=== PATIENT | male | born 1940 | race Caucasian/White ===

== ENCOUNTER 2024-09-22 22:06 | Inpatient (IN) | payer MEDICARE, BC, SELFPAY ==
[2024-09-22] VITALS (25 sets, daily range): BP systolic 0–139; BP diastolic 0–77; PULSE 60–106; RESP 18–27; O2SAT 88–100
--- NOTE | 2024-09-22 22:11 | PC.NURSE ---
Code blue called after EMS pre-arrival notification. CPR in progress by EMS upon entrance into the ED and taken over by ED staff - refer to code sheet.
--- NOTE | 2024-09-22 22:19 | XR_ITS ---
Examination: AP chest single view Technique: AP portable supine chest single view Exam date and time: September 22, 2024 11:10 PM Comparison November 02, 2023 Indications: Cardiopulmonary arrest postintubation Findings: Mild to moderate enlargement cardiac contour Tracheal tube tip 6.5 cm above ashlee Orogastric tube in stomach tip below the level of the film Right central line tip right atrium No pneumothorax No aspiration pneumonia Moderate vascular congestion Impression: Moderate vascular congestion No aspiration pneumonia
--- NOTE | 2024-09-22 22:25 | XR_ITS ---
Examination: CT brain head without contrast. 2-D sagittal coronal reconstructions Date and time of exam:September 23, 2024 0157 hrs. Indications: Status post cardiopulmonary arrest, hypoxic respiratory failure CTDI: vol (mGy):54.7 DLP: (mGycm):1139 Technique: Multiple CT axial sections of the brain have been obtained, 5 mm slice thickness. Contrast has not been administered. 2-D sagittal, coronal reconstructions have been obtained Low dose protocols were performed. One or more of the following dose reduction techniques were used; automated exposure control, adjustment of the mA and/or KV according to patient size, use of iterative reconstruction technique. Findings: Diffuse generalized cerebral and cerebellar edema Ventricles are not enlarged No hemorrhage noted Cranial vault appears intact Impression: Diffuse generalized cerebral edema MRI brain follow-up would best confirm ischemic/anoxic change
--- NOTE | 2024-09-22 22:25 | XR_ITS ---
Examination: CTA chest with intravenous contrast 2-D reconstructions 3-D reconstructions, vascular Date and time of exam: September 23, 2024 at 0210 hrs. Indications: Cardiopulmonary arrest, postintubation, elevated d-dimer CTDI: vol (mGy) 30.6 DLP: (mGycm) 561 Technique: Multiple axial sections of the thorax have been obtained. 3 mm slice thickness, from below the hemidiaphragms to above the apices of the lungs. Mediastinal and lung density settings have been obtained. 2-D sagittal and coronal reconstructions. 3-D angiographic renderings, 3-D volume renderings, 3D post processing, vascular maximum intensity projections obtained. Contrast administered is 80 cc Isovue-300 intravenous. Low dose protocols were performed. One or more of the following dose reduction techniques were used; automated exposure control, adjustment of the mA and/or KV according to patient size, use of iterative reconstruction technique. Findings: Endotracheal tube tip 2.8 cm above ashlee AP dimension ascending thoracic aorta 3.6 cm No pulmonary artery emboli Bibasilar pneumonia, consider aspiration pneumonia No pneumothorax Significant vascular congestion Orogastric tube tip in the stomach Acute fractures right second, third, fourth, fifth, sixth ribs with mild offset Acute fractures left second, third, fourth, fifth, sixth ribs with mild offset Manubrium thoracic vertebral bodies intact Impression: Negative for pulmonary artery emboli Bibasilar pneumonia consider aspiration pneumonia Multiple bilateral acute rib fractures
--- NOTE | 2024-09-22 22:25 | XR_ITS ---
Examination: CT abdomen with intravenous contrast CT pelvis with intravenous contrast 2-D coronal reconstructions 2-D sagittal reconstructions Date and time of exam:September 23, 2024 0210 hrs. Indications: Patient found down unconscious, status post cardiopulmonary arrest, hypoxic respiratory failure shortness of breath hypoxia today. CTDI: vol (mGy) 27.6 DLP: (mGycm) 1602 Technique: Multiple axial sections of the abdomen and pelvis have been obtained. 64 slice high-resolution scanner used. 3 mm axial sections have been obtained, post intravenous injection 80 cc Isovue-300 2-D sagittal, coronal reconstructions obtained. Low dose protocols were performed. One or more of the following dose reduction techniques were used; automated exposure control, adjustment of the mA and/or KV according to patient size, use of iterative reconstruction technique. Findings: Bibasilar pneumonia, consider aspiration pneumonia Mild intrahepatic biliary tract dilatation Absent gallbladder Spleen not enlarged No pancreatic or adrenal mass Atrophic right kidney No hydronephrosis Colonic wall shows diffuse thickening nonspecific colitis pattern Fluid distended small bowel loops are numerous Colonic diverticulosis Urinary bladder contracted around a [place] catheter Fat-containing left inguinal hernia Transverse prostate dimension 4.9 cm Impression: Bibasilar pneumonia, consider aspiration pneumonia Atrophic right kidney Diffuse nonspecific colitis pattern Multiple fluid distended small bowel loops, differential would include enteritis, early small bowel obstruction not excluded, clinical correlation advised
--- NOTE | 2024-09-22 22:27 | PD.EDCPR ---
ED CPR RME/HPI General Chief Complaint: Cardiac Arrest/CPR Stated Complaint: CARDIAC ARREST Arrival date/time: 09/22/24 22:06 RME / HPI RME / HPI narrative: This section includes all my notes and documentations, including HPI, PE, and ED course. Ottoniel Caraballo MD HPI: 84-year-old male here in cardiac arrest. went to his room to check up on him. He was in bed unresponsive and foaming in the mouth. Home health nurse performed chest compressions until EMS arrived. Rhythm showed asystole and PEA. No defibrillation. Patient was intubated and brought him here for further care. ROS: Unable to obtain from the patient due to current clinical condition. Physical Exam: General: Patient is intubated. Eyes: Pupils fixed and dilated. ENT: No signs of trauma. Heart: No cardiac activity. Lungs: No spontaneous respiration. Good air movement bilaterally with BVM ventilation. Abdomen: Soft. Legs: No clubbing, cyanosis, edema. Skin: Warm and dry. Neuro: GCS 3. I reviewed EMS notes. See procedure note for right subclavian central line placement. I reviewed all diagnostic test results. My interpretation of the EKG is sinus rhythm with nonspecific ST-T changes. My interpretation of the chest x-ray is no acute findings. My review of the CT reports is no acute findings. Blood tests and urine tests remarkable for WBC 20.7, ESR 42, D-dimer > 3820, K 5.7, Cr 2.2, Glu 331, LA 12.2, LFT elevation, Ammonia 215, TSH 51.21. UDS positive for opiates and benzodiazepines. ABG showed pH 7.14, pCO2 53, pHCO3 18. ACLS protocol followed, with cycles of 2-minute chest compressions. Epinephrine given every 3 to 5 minutes when indicated. Patient defibrillated X 2. Treatment included amiodarone, Levophed drip, dopamine drip, epinephrine drip, Rocephin, bicarb boluses and drip, and vasopressin. I discussed the case with our ICU. About the presentation and exam and diagnostics and treatments here. And need of further care in the hospital. Will accept the patient. Ottoniel Caraballo MD Related Data Home Medications ?Medication ?Instructions ?Recorded ?Confirmed alprazolam 1 mg tablet (Xanax) 1 mg PO HS insomnia #0 tabs 05/19/17 11/28/23 docusate sodium 100 mg capsule 100 mg PO QDAY #0 caps 05/19/17 11/28/23 (Colace) esomeprazole magnesium 40 mg 40 mg PO QDAY ##0 05/19/17 11/28/23 capsule,delayed release (Nexium) gabapentin 300 mg capsule 200 mg PO BID #0 caps 05/19/17 11/28/23 lidocaine 5 % topical patch 1 patch TOP PRN PRN Pain #0 patches 05/19/17 11/02/23 (Lidoderm) tamsulosin 0.4 mg capsule (Flomax) 0.4 mg PO QDAY ##0 05/19/17 11/28/23 fluticasone propionate 50 1 spray intranasal PRN PRN Allergy 08/28/18 11/28/23 mcg/actuation nasal Symptoms spray,suspension hydrocodone 10 mg-acetaminophen 1 tab PO TID 08/28/18 11/28/23 325 mg tablet (Rombauer) clotrimazole 1 % topical cream applic topical PRN PRN rash 11/02/23 empagliflozin 10 mg tablet 10 mg PO DAILY 11/02/23 11/28/23 (Jardiance) fenofibrate micronized 200 mg 200 mg PO QDAY 11/02/23 11/02/23 capsule metoprolol succinate 50 mg 50 mg PO QDAY 11/02/23 11/28/23 tablet,extended release 24 hr mupirocin 2 % topical ointment topical PRN PRN under arm rash 11/02/23 potassium chloride 10 mEq 10 meq PO QDAY 11/02/23 11/02/23 capsule,extended release rosuvastatin 40 mg tablet 40 mg PO HS 11/02/23 11/28/23 Previous Rx's ?Medication ?Instructions ?Recorded hydrocodone 5 mg-acetaminophen 325 1 tab PO Q8H PRN pain #9 tabs 12/02/23 mg tablet Allergies Allergy/AdvReac Type Severity Reaction Status Date / Time grass pollen-orchard grass, Allergy Severe FLU LIKE Verified 09/20/19 09:49 standard SYPTOMS methocarbamol [From Robaxin] Allergy Mild Dizziness Verified 11/28/19 12:58 Course Quality Measures none Orders Category Date Time Status Bedside COVID-19 Antigen Test NOW Care 09/22/24 22:20 Active Bedside Influenza A&B Antigen Test NOW Care 09/22/24 22:20 Completed COVID-19 Screening Questionnaire NOW Care 09/23/24 03:[address] Screening NOW Care 09/22/24 22:25 Active Decision to Admit X1 Care 09/23/24 03:44 Completed EKG (ED ONLY) *Do not use* NOW Care 09/22/24 22:20 Completed [place] to Leg Bag Routine Care 09/22/24 22:21 Ordered Insert NG / OG tube NOW Care 09/22/24 22:21 Active Saline [Insert IV] NOW Care 09/22/24 22:[address] abdomen pelvis w con Stat Exams 09/22/24 22:[address] angio chest Stat Exams 09/22/24 22:[address] head/brain wo con Stat Exams 09/22/24 22:25 Taken EKG (ED Only) Stat Exams 09/22/24 22:20 Ordered XR chest 1V post procedure Stat Exams 09/22/24 22:19 Completed ABG [Arterial Blood Gas] Stat Lab 09/22/24 23:07 Completed ABG [Arterial Blood Gas] Stat Lab 09/23/24 04:01 Completed Alcohol, Blood Medical Stat Lab 09/22/24 22:20 Completed Ammonia Stat Lab 09/22/24 22:20 Completed Amylase Stat Lab 09/22/24 22:20 Completed BNP [B-Type Natriuretic Peptide] Stat Lab 09/22/24 22:20 Completed Blood Culture (Lab) Stat Lab 09/22/24 22:25 Received CBC Stat Lab 09/22/24 22:20 Completed CK [Creatine Kinase] Stat Lab 09/22/24 22:20 Completed CMP [Comprehensive Metabolic Panel] Stat Lab 09/22/24 22:20 Completed CRP [C-Reactive Protein] Stat Lab 09/22/24 22:20 Completed D-Dimer Stat Lab 09/22/24 22:20 Completed Drug Screen,Urine Stat Lab 09/22/24 22:48 Completed ESR [Sed Rate (ESR)] Stat Lab 09/22/24 22:20 Completed Lactate (Lactic Acid) Stat Lab 09/22/24 22:20 Completed Lactic Acid, 3 HR Stat Lab 09/23/24 01:30 Completed Lipase Stat Lab 09/22/24 22:20 Completed Magnesium Stat Lab 09/22/24 22:20 Completed PT [Prothrombin Time with INR] Stat Lab 09/22/24 22:20 Completed PTT [Partial Thromboplastin Time] Stat Lab 09/22/24 22:20 Completed Path Review Blood Smear Stat Lab 09/22/24 22:20 Completed Potassium Stat Lab 09/22/24 23:30 Completed Procalcitonin Stat Lab 09/22/24 22:20 Completed RSV [Respiratory Syncytial Virus Ag] Stat Lab 09/22/24 22:26 Ordered TSH [Thyroid Stimulating Hormone] Stat Lab 09/22/24 22:20 Completed Troponin I Stat Lab 09/22/24 22:20 Completed UA [Urinalysis] Stat Lab 09/22/24 22:48 Completed Amiodarone 150 mg Ivpb [Nexterone Ivpb] Med 09/22/24 22:43 Discontinued 150 mg in 100 ml IV 600 mls/hr DOPamine/D5w 400 MG IVPB [Intropin in D5w Ivpb] Med 09/22/24 22:18 Discontinued 400 mg in 250 ml IV .STK-MED DOPamine/D5w 400 MG IVPB [Intropin in D5w Ivpb] Med 09/22/24 22:30 Active 400 mg in 250 ml IV 5 mcg/kg/min Dextrose 5%-Water [D5w] 500 ml Med 09/22/24 22:45 Active Sodium Bicarb 8.4% 50ml Vial* 88.23 meq IV 100 mls/hr Dextrose 5%-Water [D5w] 500 ml Med 09/23/24 10:30 Pending Sodium Bicarb 8.4% 50ml Vial* 88.23 meq IV 100 mls/hr EPINEPHrine Inj [Adrenalin Inj] Med 09/22/24 22:18 Discontinued 30 mg IV .STK-MED ONE Insulin Regular Med 09/23/24 04:01 Discontinued 5 unit IV X1 ONE Norepinephrine/D5W 8mg/250ml [Levophed in D5W 8mg/250ml Med 09/22/24 22:18 Discontinued ] 8 mg in 250 ml IV .STK-MED Norepinephrine/D5W 8mg/250ml [Levophed in D5W 8mg/250ml Med 09/22/24 22:18 Discontinued ] 8 mg in 250 ml IV 0.05 mcg/kg/min Norepinephrine/NS 16mg/250ml [Levophed in NS 16mg/250ml Med 09/22/24 23:25 Discontinued ] 16 mg in 250 ml IV .STK-MED Norepinephrine/NS 16mg/250ml [Levophed in NS 16mg/250ml Med 09/22/24 23:28 Active ] 16 mg in 250 ml IV 0.05 mcg/kg/min Propofol 1,000 mg Ivpb [Diprivan Ivpb] Med 09/22/24 22:19 Discontinued 1,000 mg in 100 ml IV .STK-MED Propofol 1,000 mg Ivpb [Diprivan Ivpb] Med 09/22/24 22:22 Active 1,000 mg in 100 ml IV 5 mcg/kg/min Sodium Bicarb 8.4% SYR Med 09/22/24 22:49 Discontinued 150 ml IV .STK-MED ONE Sodium Chloride 0.9% 1000 ml [Ns] 1,000 ml Med 09/22/24 22:23 Discontinued IV 999 mls/hr Sodium Chloride 0.9% 1000 ml [Ns] 1,000 ml Med 09/22/24 22:23 Discontinued IV 999 mls/hr Sodium Chloride 0.9% 1000 ml [Ns] 1,000 ml Med 09/22/24 22:24 Discontinued IV 999 mls/hr Sodium Chloride 0.9% 1000 ml [Ns] 1,000 ml Med 09/23/24 03:39 Discontinued IV 999 mls/hr Sodium Chloride 0.9% 250 ml [Ns] 234 ml Med 09/22/24 22:17 Active EPINEPHrine Inj [Adrenalin Inj] 16 mg IV 0.05 mcg/kg/min Sodium Chloride 0.9% [Ns] 96 ml Med 09/23/24 03:50 Active Phenylephrine HCl [Phenylephrine] 40 mg IV 0.5 mcg/kg/min Vasopressin in Ns Ivpb [Vasostrict/Ns Ivpb] Med 09/23/24 01:14 Discontinued 20 unit in 100 ml IV .STK-MED Vasopressin in Ns Ivpb [Vasostrict/Ns Ivpb] Med 09/23/24 01:17 Active 20 unit in 100 ml IV 0.03 unit/min cefTRIAXone/D5w 1gm IV premix [Rocephin/D5w 1gm IV Med 09/22/24 22:25 Discontinued premix] 50 ml IV X1 Mechanical [Volume Ventilator] Stat RT 09/22/24 Active Vital Signs Vital signs: Vital Signs Pulse Rate 84 09/22/24 22:20 Respiratory Rate 24 H 09/22/24 22:20 Blood Pressure 96/49 L 09/22/24 22:20 Pulse Oximetry (%) 95 09/22/24 22:20 Oxygen Delivery Method Ambu-Bag 09/22/24 22:20 Procedures -ED Central Line Placement Right SC: Time Out Performed: Yes Patient Placed on Monitor/Pulse Ox: Yes Hand Hygiene: scrub, soap & water and alcohol-based hand rub Max Sterile Barrier Techniques used: cap, mask, sterile gown, sterile gloves and sterile full body drape Central Line Prep: Chlorhexidine scrub and sterile drapes applied Ultrasound Used for Placement: No Central Line Lumen Inserted: triple Post Procedure: sutured in place, good blood return, all ports aspirated, flushed, capped and sterile dressing applied Post Procedure X-Ray: tip of catheter in good position and no pneumothorax seen Patient Tolerated Procedure: no complications Complications: none Cardiac Arrest / CPR Patient data External records reviewed:: [facility] previous records Clinical information provided by:: EMS and family Social determinants that could affect healthcare access:: none Patient has the following chronic illnesses:: See chart How is presenting disease/condition affected by chronic disease/condition?: exacerbated by Evaluation data The following diagnostics were reviewed and interpreted by me:: lab results, radiology exam(s) and EKG tracing(s) (My interpretation of the EKG is: Atrial fibrillation (71 bpm) with marked ST depressions. Ottoniel Caraballo MD) Lab and/or radiology exams considered but not ordered:: None Interpretation Summary: Cardiac arrest Medications / Prescriptions Medications or Prescriptions considered but not ordered:: None Medication administrations:: Medication Administration History Acetaminophen (Acetaminophen 325 Mg Tablet) 650 mg PO Q4HR PRN PRN Reason: PAIN SCALE 1-3 (mild Stop: 10/23/24 04:02 Acetaminophen (Acetaminophen Supp 650 Mg Supp) 650 mg AR Q4HR PRN PRN Reason: PAIN SCALE 1-3 (mild Stop: 10/23/24 04:02 Heparin Sodium (Porcine) (Heparin Sod Inj 5000 Unit/Ml Vial) 5,000 unit SC Q8HR MELISSA Stop: 10/07/24 05:59 Epinephrine HCl 16 mg/ Sodium (Chloride) 250 mls @ 5.297 mls/hr IV .Q24H PRN; Protocol PRN Reason: Per Protocol Stop: 10/22/24 22:16 Last Admin: 09/23/24 04:04 Dose: 2 mcg/kg/min, 211.875 mls/hr Documented By: Titration: 09/23/24 01:13 Dose: Infused Documented By: Admin: 09/23/24 00:02 Dose: 2 mcg/kg/min, 211.875 mls/hr Documented By: Titration: 09/22/24 23:48 Dose: Infused Documented By: Titration: 09/22/24 22:42 Dose: 2 mcg/kg/min, 211.875 mls/hr Documented By: Admin: 09/22/24 22:31 Dose: 1 mcg/kg/min, 105.938 mls/hr Documented By: KG Dopamine HCl/Dextrose (Intropin In D5w Ivpb) 400 mg in 250 mls @ 21.188 mls/hr IV .[id number] MELISSA; Protocol Stop: 10/22/24 22:29 Last Titration: 09/23/24 03:55 Dose: Infused Documented By: Admin: 09/23/24 00:01 Dose: 50 mcg/kg/min, 211.875 mls/hr Documented By: Titration: 09/22/24 23:45 Dose: Infused Documented By: Admin: 09/22/24 22:34 Dose: 50 mcg/kg/min, 211.875 mls/hr Documented By: KG Propofol (Diprivan Ivpb) 1,000 mg in 100 mls @ 3.39 mls/hr IV .Q24H PRN; Protocol PRN Reason: PER PROTOCOL Stop: 10/22/24 22:21 Sodium Bicarbonate 88.23 meq/ (Dextrose) 588.23 mls @ 100 mls/hr IV .Q5H53M MELISSA Stop: 10/23/24 10:29 Sodium Bicarbonate 88.23 meq/ (Dextrose) 588.23 mls @ 100 mls/hr IV .Q5H53M MELISSA Stop: 09/23/24 10:30 Last Admin: 09/23/24 00:50 Dose: 100 mls/hr Documented By: KG Norepinephrine Bitartrate (Levophed In Ns 16mg/250ml) 16 mg in 250 mls @ 5.297 mls/hr IV .Q24H PRN; Protocol PRN Reason: PER PROTOCOL Stop: 10/22/24 23:27 Last Admin: 09/23/24 05:16 Dose: 3 mcg/kg/min, 317.813 mls/hr Documented By: Titration: 09/23/24 04:13 Dose: Infused Documented By: Admin: 09/23/24 03:25 Dose: 3 mcg/kg/min, 317.813 mls/hr Documented By: Titration: 09/23/24 00:21 Dose: Infused Documented By: Admin: 09/22/24 23:33 Dose: 3 mcg/kg/min, 317.813 mls/hr Documented By: KG Vasopressin/Sodium Chloride (Vasostrict/Ns Ivpb) 20 unit in 100 mls @ 9 mls/hr IV .Q11H7M PRN; Protocol PRN Reason: PER PROTOCOL Stop: 10/23/24 01:16 Last Admin: 09/23/24 01:22 Dose: 0.03 unit/min, 9 mls/hr Documented By: SHAILA Phenylephrine HCl 40 mg/ (Sodium Chloride) 100 mls @ 8.475 mls/hr IV .[id number] PRN; Protocol PRN Reason: Per Sepsis Protocol Stop: 10/23/24 03:49 Last Titration: 09/23/24 05:04 Dose: 0.7 mcg/kg/min, 11.865 mls/hr Documented By: Admin: 09/23/24 03:55 Dose: 0.5 mcg/kg/min, 8.475 mls/hr Documented By: SUE Phenylephrine HCl 40 mg/ (Sodium Chloride) 100 mls @ 8.475 mls/hr IV .[id number] PRN; Protocol PRN Reason: Per Sepsis Protocol Stop: 10/23/24 04:02 Vancomycin HCl 1,000 mg/ (Sodium Chloride) 250 mls @ 150 mls/hr IV X1 ONE Stop: 09/23/24 05:45 Piperacillin/Tazobactam/Dextrose (Zosyn) 3.375 gm in 50 mls @ 100 mls/hr IV Q6HR MELISSA Stop: 09/30/24 04:05 Pantoprazole Sodium (Pantoprazole Inj 40 Mg Vial) 40 mg IVP BID MELISSA Stop: 10/23/24 08:59 Discontinued Medications Epinephrine HCl (Epinephrine Inj 1 Mg/Ml Vial 30ml) Confirm Administered Dose 30 mg IV .STK-MED ONE Stop: 09/22/24 22:19 Last Admin: 09/22/24 22:30 Dose: Not Given Documented By: KG Non-Admin Reason: Override Medication Hydrocortisone Sodium Succinate (Hydrocortisone Sod Succ Inj 100 Mg Vial) 100 mg IV X1 ONE Stop: 09/23/24 04:08 Norepinephrine/Dextrose (Levophed In D5w 8mg/250ml) 8 mg in 250 mls @ 10.594 mls/hr IV .[id number] PRN; Protocol PRN Reason: PER PROTOCOL Stop: 10/22/24 22:17 Last Admin: 09/22/24 23:06 Dose: 3 mcg/kg/min, 635.625 mls/hr Documented By: Titration: 09/22/24 23:06 Dose: Infused Documented By: Titration: 09/22/24 22:45 Dose: 3 mcg/kg/min, 635.625 mls/hr Documented By: Admin: 09/22/24 22:35 Dose: 1 mcg/kg/min, 211.875 mls/hr Documented By: KG Sodium Chloride (Ns) 1,000 mls @ 999 mls/hr IV .Q1H1M ONE Stop: 09/22/24 23:23 Last Admin: 09/22/24 22:30 Dose: 999 mls/hr Documented By: KG Sodium Chloride (Ns) 1,000 mls @ 999 mls/hr IV .Q1H1M ONE Stop: 09/22/24 23:23 Last Admin: 09/22/24 23:00 Dose: 999 mls/hr Documented By: KG Sodium Chloride (Ns) 1,000 mls @ 999 mls/hr IV .Q1H1M ONE Stop: 09/22/24 23:24 Last Admin: 09/23/24 03:14 Dose: Not Given Documented By: GB Non-Admin Reason: Code Blue Dopamine HCl/Dextrose (Intropin In D5w Ivpb) Confirm Administered Dose 400 mg in 250 mls @ ud IV .STK-MED ONE Stop: 09/22/24 22:19 Last Admin: 09/22/24 22:30 Dose: Not Given Documented By: KG Non-Admin Reason: Override Medication Norepinephrine/Dextrose (Levophed In D5w 8mg/250ml) Confirm Administered Dose 8 mg in 250 mls @ ud IV .STK-MED ONE Stop: 09/22/24 22:19 Last Admin: 09/22/24 22:30 Dose: Not Given Documented By: KG Non-Admin Reason: Override Medication Propofol (Diprivan Ivpb) Confirm Administered Dose 1,000 mg in 100 mls @ ud IV .STK-MED ONE Stop: 09/22/24 22:20 Last Admin: 09/23/24 01:16 Dose: Not Given Documented By: AC Non-Admin Reason: Override Medication Ceftriaxone Sodium/Dextrose (Rocephin/D5w 1gm Iv Premix) 50 mls @ 100 mls/hr IV X1 ONE Stop: 09/22/24 22:54 Last Admin: 09/23/24 00:30 Dose: 100 mls/hr Documented By: KG Amiodarone HCl/Dextrose (Nexterone Ivpb) 150 mg in 100 mls @ 600 mls/hr IV .Q10M ONE Stop: 09/22/24 22:52 Last Admin: 09/23/24 03:14 Dose: Not Given Documented By: GB Non-Admin Reason: Code Blue Norepinephrine Bitartrate (Levophed In Ns 16mg/250ml) Confirm Administered Dose 16 mg in 250 mls @ ud IV .STK-MED ONE Stop: 09/22/24 23:26 Last Admin: 09/23/24 01:18 Dose: Not Given Documented By: AC Non-Admin Reason: Override Medication Vasopressin/Sodium Chloride (Vasostrict/Ns Ivpb) Confirm Administered Dose 20 unit in 100 mls @ ud IV .STK-MED ONE Stop: 09/23/24 01:15 Last Admin: 09/23/24 03:14 Dose: Not Given Documented By: GB Non-Admin Reason: stock med Sodium Chloride (Ns) 1,000 mls @ 999 mls/hr IV .Q1H1M ONE Stop: 09/23/24 04:39 Last Admin: 09/23/24 03:47 Dose: 999 mls/hr Documented By: GB Piperacillin/Tazobactam/Dextrose (Zosyn) 3.375 gm in 50 mls @ 100 mls/hr IV X1 ONE Stop: 09/23/24 04:59 Insulin Human Regular (Insulin Hum Regular 1 Unit/0.01 Ml (Per Unit)) 5 unit IV X1 ONE Stop: 09/23/24 04:02 Sodium Bicarbonate (Sodium Bicarb Inj 8.4% Syr 50 Ml Syringe) Confirm Administered Dose 150 ml IV .STK-MED ONE Stop: 09/22/24 22:50 Last Admin: 09/23/24 01:18 Dose: Not Given Documented By: AC Non-Admin Reason: Override Medication Sodium Bicarbonate (Sodium Bicarb Inj 8.4% Syr 50 Ml Syringe) 50 ml IV X1 ONE Stop: 09/23/24 04:18 Last Admin: 09/23/24 04:23 Dose: 50 ml Documented By: KG Sodium Bicarbonate (Sodium Bicarb Inj 8.4% Syr 50 Ml Syringe) 50 ml IV X1 ONE Stop: 09/23/24 04:18 Last Admin: 09/23/24 04:23 Dose: 50 ml Documented By: KG Sodium Bicarbonate (Sodium Bicarb Inj 8.4% 1 Meq/Ml Vial 50 Ml) 100 meq IV X1 ONE Stop: 09/23/24 04:26 See chart Consultations Consultation(s) initiated? (list below): No Diagnosis Most likely diagnosis given after review of the tests above:: Cardiac arrest Admission Indicated Admission indicated?: indicated Explain why admission is indicated or not indicated:: Cardiac arrest Admission Request Was there a request for admission?: Yes Admission Attestation Admission request attestation: Discussed case with our ICU service regarding admission. Discussed patients ED course, exam findings, labs, and radiology results. The Hospitalist [agrees,declines] to accept the patient for admission. Disposition Plan Disposition Plan: Admit Critical Care Time Critical Care Time Critical Care Time: Yes Total Critical Care Time (min.): 68 Attestation: Due to a high probability of clinically significant, life threatening deterioration, the patient required my highest level of preparedness to intervene emergently and I personally spent this critical care time directly and personally managing the patient.? This critical care time included obtaining history; examining the patient; ordering and review of studies; arranging urgent treatment with development of management plan; evaluation of patient's response to treatment; frequent reassessment; and discussions with family and other providers. It was exclusive of separately billable procedures and treating other patients and teaching time.? Ottoniel Caraballo MD Discharge Plan Plan Patient Disposition: Admit Acute Care w/in Hospital Problem List Clinical Impression: Cardiac arrest
[2024-09-22] MEDS: SODIUM CHLORIDE 0.9% 1000 ML 1,000 ML 999 ML IV ×2 (22:30→23:00)
[2024-09-22] MEDS: EPINEPHrine Inj 16 MG in SODIUM CHLORIDE 0.9% 250 ML 234 ML 105.938 MG IV (22:31)
[2024-09-22] MEDS: DOPamine/D5w 400 MG IVPB 400 MG/250 ML BAG 211.875 MG IV (22:34)
[2024-09-22] MEDS: Norepinephrine/D5W 8mg/250ml 8 MG/250 ML BAG 211.875 MG IV (22:35)
[2024-09-22 22:36] LABS: Basophils # (Auto) 0.1 Thou/mm3 (0.0-0.2); Basophils % (Auto) 1 % (0-2.5); Eosinophils # (Auto) 0.3 Thou/mm3 (0.0-0.5); Eosinophils % (Auto) 1 % (0-10); Hematocrit 39.8 % (41.0-53.0); Hemoglobin 12.1 g/dL (13.5-16.0); Immature Granulocytes % (Auto) 7 % (0-0); Immature Granulocytes Auto 1.35 Thou/mm3 (0.00-0.00); Lymphocytes # (Auto) 10.6 Thou/mm3 (1.0-4.8); Lymphocytes % (Auto) 51 % (10-50); Mean Corpuscular HGB Conc 30.4 g/dl (31.0-37.0); Mean Corpuscular Volume 102 fL (80-100); Monocytes # (Auto) 0.8 Thou/mm3 (0.0-0.8); Monocytes % (Auto) 4 % (0-12); Neutrophils # (Auto) 7.6 Thou/mm3 (1.8-7.7); Neutrophils % (Auto) 37 % (37-80); Nucleated Red Blood Cell # 0.02 Thou/mm3 (0.00-0.00); Nucleated Red Blood Cell % 0 /100 WBC (0); Platelet Count 121 Thou/mm3 (140-440); RDW Standard Deviation 52.4 fL (35.1-43.9); White Blood Count 20.7 Thou/mm3 (3.8-10.6)
[2024-09-22 22:43] LABS: Lactate (Lactic Acid) 11.9 mMol/L (0.4-2.0)
[2024-09-22 22:45] LABS: Sed Rate (ESR) 42 mm/hr (0-20)
[2024-09-22 23:03] LABS: D-Dimer > 3820 ng/mL (<600)
[2024-09-22 23:05] LABS: B-Type Natriuretic Peptide 40 pg/mL (0-100); INR 1.2 (0.9-1.3); Partial Thromboplastin Time 38.7 Seconds (22.0-36.0)
[2024-09-22] MEDS: Norepinephrine/D5W 8mg/250ml 8 MG/250 ML BAG 635.625 MG IV (23:06)
[2024-09-22 23:10] LABS: Collection Type, Urine Clean Catch; RBC,Urine 0 /hpf (0-3); WBC,Urine 0 /hpf (0-5)
[2024-09-22 23:11] LABS: Ammonia 215 uMol/L (11-32)
[2024-09-22 23:13] LABS: Allen Test Performed/OK; Base Excess -11 (-3-3); HCO3 18 mEq/L (20-26); Inspired Oxygen, FIO2 21 %; O2 Saturation 99 % (91-98); PCO2 53 mmHg (32.0-48.0); PO2 131 mmHg (83-108); Puncture Site Left Radial
[2024-09-22 23:14] LABS: pH, Arterial 7.14 (7.35-7.45)
[2024-09-22 23:19] LABS: Alanine Aminotransferase 155 U/L (10-49); Albumin, Serum 3.4 gm/dL (3.4-4.8); Albumin/Globulin Ratio 1.5 (1.2-2.2); Alcohol, Blood Medical < 3.0 mg/dL (0-10.0); Alkaline Phosphatase 92 U/L (46-116); Anion Gap 15 (7-16); Aspartate Amino Transferase 122 U/L (0-34); BUN/Creatinine Ratio 21 Ratio (12-20); Bilirubin,Total 0.3 mg/dL (0.3-1.2); Blood Urea Nitrogen 47 mg/dL (9-23); Calcium (Corrected) 10.5 mg/dL (8.5-10.1); Carbon Dioxide 21.5 mMol/L (20.0-31.0); Chloride 104 mMol/L (98-107); Creatine Kinase 69 U/L (34-171); Creatinine (Component) 2.2 mg/dL (0.6-1.3); Globulin 2.2 gm/dL (2.3-3.5); Glucose 331 mg/dL (74-106); Lipase 55 U/L (12-53); Magnesium 2.7 mg/dL (1.6-2.6); Osmolality,Calculated 304 (275-295); Procalcitonin 0.11 ng/ml (0.0-0.49); Sodium 140 mMol/L (136-145); Thyroid Stimulating Hormone 51.21 uIU/mL (0.55-4.78); Total Protein 5.6 gm/dL (5.7-8.2); Troponin I < 0.020 ng/mL (0.0-0.045); eGFR 29 See Note
[2024-09-22 23:25] LABS: Potassium 6.4 mMol/L (3.4-5.1)
[2024-09-22 23:31] LABS: Amylase 150 U/L (30-118); C-Reactive Protein < 0.4 mg/dL (0.0-0.9)
[2024-09-22 23:32] LABS: Bilirubin,Urine Negative (Negative); Blood,Urine Negative (Negative); Clarity,Urine Clear (Clear/Hazy); Color,Urine Lt-Yellow (Lt Yel-Yel); Glucose, Urine Negative (Negative); Hyaline Casts,Urine < 1 /hpf (0-1); Ketones,Urine Negative (Negative); Leukocyte Esterase,Urine Negative (Negative); Nitrite,Urine Negative (Negative); PH,Urine 6.5 (5.0-7.0); Protein,Urine 1+ (Neg - Trace); Specific Gravity,Urine 1.019 (1.001-1.035); Squamous Epithelial Cell,Urine < 1 /hpf (0-5); Urobilinogen,Urine Negative mg/dL (0.0-1.0)
[2024-09-22] MEDS: Norepinephrine/NS 16mg/250ml 16 MG/250 ML BAG 317.813 MG IV (23:33)
[2024-09-22 23:41] LABS: Amphetamine/Methamp Scrn,U Negative (Negative); Barbiturate Screen,Urine Negative (Negative); Benzodiazepines Screen,Urine Positive (Negative); Benzoylecgonine Screen, Ur Negative (Negative); Fentanyl Screen,Urine Negative (Negative); Opiate Screen,Urine Positive (Negative); THC Screen,Urine Negative (Negative)
--- NOTE | 2024-09-22 23:50 | PC.NURSE ---
Called and spoke with pt's daughter Bobbi who is on her way to the hospital.
[2024-09-22 23:58] LABS: Potassium 5.7 mMol/L (3.4-5.1)
[2024-09-23] VITALS (69 sets, daily range): BP systolic 67–120; BP diastolic 34–62; PULSE 90–103; RESP 20–24; TEMP 32.8–36.2; O2SAT 64–100; BMI 39.9
[2024-09-23] MEDS: DOPamine/D5w 400 MG IVPB 400 MG/250 ML BAG 211.875 MG IV (00:01)
[2024-09-23] MEDS: EPINEPHrine Inj 16 MG in SODIUM CHLORIDE 0.9% 250 ML 234 ML 211.875 MG IV ×4 (00:02→06:43)
[2024-09-23] MEDS: cefTRIAXone/D5w 1gm IV premix 50 ML IV (00:30)
--- NOTE | 2024-09-23 00:41 | PC.NURSE ---
Family at the bedside
[2024-09-23] MEDS: Sodium Bicarb 8.4% 50ml Vial* 88.23 MEQ in DEXTROSE 5%-WATER 500 ML 100 MEQ IV ×2 (00:50→05:59)
--- NOTE | 2024-09-23 01:05 | PC.NURSE ---
Dr. Caraballo at the bedside speaking to family.
[2024-09-23] MEDS: VASOPRESSIN IN NS IVPB 20 UNIT/100 ML BAG 9 UNIT IV ×2 (01:22→08:21)
[2024-09-23 01:30] LABS: Reflex Lactate? Y
[2024-09-23 02:08] LABS: Path Review Blood Smear Sent to Pathologist
--- NOTE | 2024-09-23 02:44 | PRELIM_ITS ---
CT angiogram of the chest with intravenous contrast (axial sections with sagittal and coronal reforma ts) September 23, 2024 0210 hours Clinical History: Shortness of breath and hypoxia.Technique:Helical axial sections with sagittal and coronal reformats of the chest were obtained with intravenous contra st. Iterative reconstruction technique was employed to reduce patient radiation exposure. 3D/MIP vinod nstructed images were also provided. Comparison: None.Findings:The evaluation of some of the subsegme ntal pulmonary artery divisions is limited due to respiratory motion and streak artifact. No pulmonar y thromboembolism in the remainder of the pulmonary artery divisions. The mediastinum demonstrates no evidence of mass or lymphadenopathy. The thoracic aorta demonstrates atheromatous calcification with out evidence of aneurysm. There is no pericardial effusion. Bibasilar atelectasis/consolidation is se en (right greater than left). There is a calcified granuloma in the right lower lobe. No evidence of pleural effusion or pneumothorax.Degenerative changes are identified in the spine.An endotracheal tub e is seen with its tip 2.5 cm above the ashlee. There is a nasogastric catheter with its tip in the s tomach. There is a right central venous catheter with its tip in the superior vena cava. Neurostimula tor leads are noted in the thoracic spinal canal.Impression:No CT evidence of pulmonary thromboemboli sm (limited evaluation of some of the subsegmental pulmonary artery divisions due to respiratory naima on and streak artifact). Recommend additional evaluation, if clinically indicated.Bibasilar atelectas is/consolidation; the possibility of aspiration cannot be excluded. Recommend clinical correlation.Ot her findings as described above. Report Electronically Signed By: Milad Persaud 09/23/2024 2:43:46 AM [EST]
--- NOTE | 2024-09-23 02:54 | PRELIM_ITS ---
CT scan of the abdomen and pelvis with intravenous contrast (axial sections with sagittal and coronal reformats) September 23, 2024 0210 hoursClinical History: Abdominal pain.Comparison: None.Findings:Th e gallbladder is surgically absent. The right kidney is atrophic. Nonspecific perinephric fat strandi ng is noted bilaterally. The liver, pancreas, spleen, and adrenals are unremarkable.The appendix is w ithin normal limits. There is wall thickening of the ascending and transverse colon. There are multip le colonic diverticula without evidence of diverticulitis. There are diffusely dilated small bowel lo ops in the abdomen. A [place] catheter is seen in the empty urinary bladder. There is a small fat conta ining left inguinal hernia. There is no free fluid or free air. The abdominal aorta demonstrates athe romatous calcification without evidence of aneurysm.Degenerative changes are identified in the spine. There are postoperative changes with transpedicular screws in the lumbar spine. There is a neurostim ulator device in the left posterior abdominal wall with its leads in the spinal canal.Impression:[place] marika wall thickening with diffusely dilated fluid filled small bowel loops as described, of concern fo r enterocolitis. Recommend clinical correlation.Other findings as described above.Please refer to the report on the CT chest submitted separately. Report Electronically Signed By: Milad Persaud 4 2:53:49 AM [EST]
--- NOTE | 2024-09-23 02:54 | PC.NURSE ---
Pt's is at the bedside.
--- NOTE | 2024-09-23 03:15 | PC.NURSE ---
Break RN: Dr Caraballo at bedside speaking with family, including pt's .
[2024-09-23 03:18] LABS: Lactic Acid, 3 HR 12.2 mMol/L (0.4-2.0)
--- NOTE | 2024-09-23 03:21 | PC.RT ---
PT taken to CT @approximately 0140 on transport ventilator with [employer] and [employer] [place]. PT experienced Desaturations and was taken off of transport ventilator and bagged for the duration of the scan. PT brought back to ER and returned to ventilator@ approximately 0225.
[2024-09-23] MEDS: Norepinephrine/NS 16mg/250ml 16 MG/250 ML BAG 317.813 MG IV ×5 (03:25→07:31)
--- NOTE | 2024-09-23 03:39 | PRELIM_ITS ---
CT scan of the head without intravenous contrast (axial sections with sagittal and coronal reformats) September 23, 2024 0157 hoursClinical history[facility] for comparison. Finding s:There is loss of hoskins-white matter differentiation with diffuse effacement of the sulci, suggestive of diffuse cerebral edema. There is also effacement of the basal cisterns and ventricles. There is r elative hyperdensity of the dural venous sinuses and vessels. There is no evidence of intracranial he morrhage or midline shift. The calvarium is unremarkable. 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 Recommend clinical correlation and followup with MRI if indicated. No evidence of intracranial he morrhage or midline shift. Report Electronically Signed By: Milad Persaud 09/23/2024 3:39:07 AM [EST]
[2024-09-23] MEDS: SODIUM CHLORIDE 0.9% 1000 ML 1,000 ML 999 ML IV (03:47)
[2024-09-23] MEDS: PHENYLEPHRINE HCL 40 MG in SODIUM CHLORIDE 0.9% 96 ML 8.475 MG IV (03:55)
--- NOTE | 2024-09-23 04:02 | ESHP_ITS ---
Addendum History & Physical Addendum Date of report being addended: 09/23/24 Narrative: Attending's attestation: I reviewed labs, imaging, EKG, home medications and prior available records. Face to face evaluation was performed by me. I have personally examined the patient and discussed assessment and plan with the IM team. I reviewed the resident note and agree with the plan with exceptions as below. 84-year-old male with history of hypertension who presented with a chief complai nt of unresponsiveness. He was found to have cardiac arrest status post ROSC. Cardiac arrest status post ROSC: Etiology is unclear. Patient was found down for unknown period of time and he was in cardiac arrest at the time of starting CPR. He was in and out of multiple cardiac arrhythmias including ventricular fibrillation and PEA. Patient has fixed and dilated pupils with absence of brainstem reflexes. He is in shock requiring multiple vasopressors. CTA of the chest showed no acute PE. No previous history of CHF. Possible sepsis however source is unclear. Abdominal CT showed colitis picture however doubt leak causing cardiac arrest and the patient was reported as asymptomatic reading his book when he was last seen. Troponin is negative and EKG is not showing any acute MA changes. He has significant lab abnormalities however these are likely postarrest labs. Will start the patient on vancomycin/Zosyn and continue vasopressors. Temperature management. Shock: Likely cardiogenic postcardiac arrest versus septic. Continue vasopressors. Monitor vitals. Metabolic acidosis: In the setting of cardiac arrest. Continue bicarb drip. Follow-up BMP. Transaminitis: Likely shock liver in setting of cardiac arrest. Management as above. Trend LFTs. SYLVAIN: Likely intrinsic in the setting of shock and cardiac arrest. Continue IV fluids. Monitor kidney function. Avoid nephrotoxins. Renally dosed medications. Abnormal TSH: TSH is very elevated. Could be sick thyroid. Ordered free T4. Thrombocytopenia: Can be in setting of cardiac arrest and acute illness. No signs of active bleeding. Monitor CBC. Elevated D-dimer: Ordered CTA chest that showed no acute PE. Goals of care discussion/counseling: Given the likelihood of his brainstem and poor prognosis. He is currently full code however will benefit from further goals of care discussion if he codes again which is likely to happen. Critical care time is 65 minutes.
[2024-09-23 04:09] LABS: Base Excess -17 (-3-3); HCO3 15 mEq/L (20-26); Inspired Oxygen, FIO2 100 %; O2 Saturation 62 % (91-98); PCO2 65 mmHg (32.0-48.0)
[2024-09-23 04:10] LABS: Allen Test Performed/OK; Puncture Site Left Radial
[2024-09-23 04:11] LABS: pH, Arterial 6.97 (7.35-7.45)
[2024-09-23 04:12] LABS: PO2 41 mmHg (83-108)
[2024-09-23] MEDS: Sodium Bicarb Inj 8.4% SYR 50 ML SYRINGE IV ×2 (04:23)
--- NOTE | 2024-09-23 04:59 | XR_ITS ---
Examination: AP chest single view Technique: AP portable supine chest single view Exam date and time: September 23, 2024 0620 hrs. Comparison September 22, 2024 Findings: The film is underpenetrated and rotated RPO Enlarged cardiac contour again noted with prominent vascular congestion Right central line tip right atrium Prominent osteopenia Orogastric tube in the stomach tip below the level film Impression: Findings most consistent with [id number] heart failure Endotracheal tube tip 6.8 cm above ashlee
[2024-09-23] MEDS: HYDROCORTISONE SOD SUCC INJ 100 MG VIAL IV (05:34)
[2024-09-23] MEDS: Vancomycin Inj 1,000 MG in SODIUM CHLORIDE 0.9% 250 ML 250 ML 150 MG IV (05:43)
--- NOTE | 2024-09-23 05:43 | PD.RESHP ---
Documentation for date of: 09/23/24 HPI History of Present Illness History of present illness: Patient is a 84M w/ PMH of HTN, GERD, HLD, T2DM, and BPH that presented to the ER due to cardiac arrest. Per chart reiview patient was reading in his bed, 2 hour later and home health nurse found him unresponsive with foam around his mouth. They called EMS and started CPR, pt was intubated in the field. In the ED patient was in PEA, and were able to get a shockable rhythm Vtach, afterward was able to get ROSC. Patient was started on vasopressors. CT head and CT a/p were negative for any acute findings. Patient will be transferred to the ICU for postcardiac arrest. Review of Systems Review of Systems ROS Unobtainable: due to endotracheal tube Exam Vital Signs Temp Pulse Resp BP Pulse Ox O2 Del Method FiO2 97.1 F 96 20 83/53 L 100 Mechanical Ventilation 100 09/23/24 00:26 09/23/24 05:25 09/23/24 04:42 09/23/24 05:25 09/23/24 05:08 09/23/24 04:41 09/23/24 05:08 Narrative Exam Constitutional: intubated, not sedated HEENT: AT, pupils are dilated not reactive to light CVS: RRR, S1-S2 present, no murmurs RESP: B rhonchi GI: non distended, NBS MSK: B lower extremity mottling Skin: cold and dry Neuro: no gag reflex, no corneal reflex Results: Labs 09/23/24 06:35 09/23/24 06:35 Labs: Short CBC 09/22/24 Range/Units 22:20 WBC 20.7 H (3.8-10.6) Thou/mm3 Hgb 12.1 L (13.5-16.0) g/dL Hct 39.8 L (41.0-53.0) % Plt Count 121 L (140-440) Thou/mm3 BMP 09/22/24 09/22/24 22:20 23:30 Sodium 140 Potassium 6.4 H* 5.7 H D Chloride 104 Carbon Dioxide 21.5 BUN 47 H Creatinine 2.2 H Glucose 331 H Calcium 10.0 Cardiac Enzymes 09/22/24 Range/Units 22:20 Total Creatine Kinase 69 (34-171) U/L Troponin I < 0.020 (0.0-0.045) ng/mL Liver Function 09/22/24 Range/Units 22:20 Total Bilirubin 0.3 (0.3-1.2) mg/dL AST 122 H (0-34) U/L ALT 155 H (10-49) U/L Alkaline Phosphatase 92 (46-116) U/L Albumin 3.4 (3.4-4.8) gm/dL Urine 09/22/24 Range/Units 22:48 Urine Color Lt-Yellow (Lt Yel-Yel) Urine Clarity Clear (Clear/Hazy) Urine pH 6.5 (5.0-7.0) Ur Specific [place] 1.019 (1.001-1.035) Urine Protein 1+ A (Neg - Trace) Urine Glucose (UA) Negative (Negative) ABG Interpretation ABG results: 09/22/24 09/23/24 23:07 04:01 ABG pH 7.14 L* 6.97 L* D ABG pCO2 53 H 65 H D ABG pO2 131 H 41 L* D ABG HCO3 18 L 15 L ABG O2 Saturation 99 H 62 L ABG Base Excess -11 L -17 L Quality Measures Quality Measures none Advance care planning discussed with:: child Medications Home Medications and Allergies Home Medications ?Medication ?Instructions ?Recorded ?Confirmed ?Type alprazolam 1 mg tablet (Xanax) 1 mg PO HS insomnia #0 tabs 05/19/17 11/28/23 History docusate sodium 100 mg capsule 100 mg PO QDAY #0 caps 05/19/17 11/28/23 History (Colace) esomeprazole magnesium 40 mg 40 mg PO QDAY ##0 05/19/17 11/28/23 History capsule,delayed release (Nexium) gabapentin 300 mg capsule 200 mg PO BID #0 caps 05/19/17 11/28/23 History lidocaine 5 % topical patch 1 patch TOP PRN PRN Pain #0 patches 05/19/17 11/02/23 History (Lidoderm) tamsulosin 0.4 mg capsule (Flomax) 0.4 mg PO QDAY ##0 05/19/17 11/28/23 History fluticasone propionate 50 1 spray intranasal PRN PRN Allergy 08/28/18 11/28/23 History mcg/actuation nasal Symptoms spray,suspension hydrocodone 10 mg-acetaminophen 1 tab PO TID 08/28/18 11/28/23 History 325 mg tablet ([place]) clotrimazole 1 % topical cream applic topical PRN PRN rash 11/02/23 History empagliflozin 10 mg tablet 10 mg PO DAILY 11/02/23 11/28/23 History ([place]ard[place]) fenofibrate micronized 200 mg 200 mg PO QDAY 11/02/23 11/02/23 History capsule metoprolol succinate 50 mg 50 mg PO QDAY 11/02/23 11/28/23 History tablet,extended release 24 hr mupirocin 2 % topical ointment topical PRN PRN under arm rash 11/02/23 History potassium chloride 10 mEq 10 meq PO QDAY 11/02/23 11/02/23 History capsule,extended release rosuvastatin 40 mg tablet 40 mg PO HS 11/02/23 11/28/23 History Allergies Allergy/AdvReac Type Severity Reaction Status Date / Time grass pollen-orchard grass, Allergy Severe FLU LIKE Verified 09/20/19 09:49 standard SYPTOMS methocarbamol [From Robaxin] Allergy Mild Dizziness Verified 11/28/19 12:58 Visit Medications Acetaminophen (Acetaminophen 325 Mg Tablet) 650 mg PO Q4HR PRN PRN Reason: PAIN SCALE 1-3 (mild Stop: 10/23/24 04:02 Acetaminophen (Acetaminophen Supp 650 Mg Supp) 650 mg FL Q4HR PRN PRN Reason: PAIN SCALE 1-3 (mild Stop: 10/23/24 04:02 Heparin Sodium (Porcine) (Heparin Sod Inj 5000 Unit/Ml Vial) 5,000 unit SC Q8HR [facility] Stop: 10/07/24 05:59 Epinephrine HCl 16 mg/ Sodium (Chloride) 250 mls @ 5.297 mls/hr IV .Q24H PRN; Protocol PRN Reason: Per Protocol Stop: 10/22/24 22:16 Last Admin: 09/23/24 05:25 Dose: 2 mcg/kg/min, 211.875 mls/hr Dopamine HCl/Dextrose (Intropin In D5w Ivpb) 400 mg in 250 mls @ 21.188 mls/hr IV .[id number] MELISSA; Protocol Stop: 10/22/24 22:29 Last Titration: 09/23/24 03:55 Dose: Infused Propofol (Diprivan Ivpb) 1,000 mg in 100 mls @ 3.39 mls/hr IV .Q24H PRN; Protocol PRN Reason: PER PROTOCOL Stop: 10/22/24 22:21 Sodium Bicarbonate 88.23 meq/ (Dextrose) 588.23 mls @ 100 mls/hr IV .Q5H53M MELISSA Stop: 10/23/24 10:29 Sodium Bicarbonate 88.23 meq/ (Dextrose) 588.23 mls @ 100 mls/hr IV .Q5H53M MELISSA Stop: 09/23/24 10:30 Last Admin: 09/23/24 00:50 Dose: 100 mls/hr Norepinephrine Bitartrate (Levophed In Ns 16mg/250ml) 16 mg in 250 mls @ 5.297 mls/hr IV .Q24H PRN; Protocol PRN Reason: PER PROTOCOL Stop: 10/22/24 23:27 Last Admin: 09/23/24 05:16 Dose: 3 mcg/kg/min, 317.813 mls/hr Vasopressin/Sodium Chloride (Vasostrict/Ns Ivpb) 20 unit in 100 mls @ 9 mls/hr IV .Q11H7M PRN; Protocol PRN Reason: PER PROTOCOL Stop: 10/23/24 01:16 Last Admin: 09/23/24 01:22 Dose: 0.03 unit/min, 9 mls/hr Phenylephrine HCl 40 mg/ (Sodium Chloride) 100 mls @ 8.475 mls/hr IV .[id number] PRN; Protocol PRN Reason: Per Sepsis Protocol Stop: 10/23/24 03:49 Last Titration: 09/23/24 05:39 Dose: 0.85 mcg/kg/min, 14.408 mls/hr Phenylephrine HCl 40 mg/ (Sodium Chloride) 100 mls @ 8.475 mls/hr IV .[id number] PRN; Protocol PRN Reason: Per Sepsis Protocol Stop: 10/23/24 04:02 Vancomycin HCl 1,000 mg/ (Sodium Chloride) 250 mls @ 150 mls/hr IV X1 ONE Stop: 09/23/24 05:45 Last Admin: 09/23/24 05:43 Dose: 150 mls/hr Piperacillin/Tazobactam/Dextrose (Zosyn) 3.375 gm in 50 mls @ 100 mls/hr IV Q6HR MELISSA Stop: 09/30/24 04:05 Pantoprazole Sodium (Pantoprazole Inj 40 Mg Vial) 40 mg IVP BID MELISSA Stop: 10/23/24 08:59 Discontinued Medications Hydrocortisone Sodium Succinate (Hydrocortisone Sod Succ Inj 100 Mg Vial) 100 mg IV X1 ONE Stop: 09/23/24 04:08 Last Admin: 09/23/24 05:34 Dose: 100 mg Norepinephrine/Dextrose (Levophed In D5w 8mg/250ml) 8 mg in 250 mls @ 10.594 mls/hr IV .[id number] PRN; Protocol PRN Reason: PER PROTOCOL Stop: 10/22/24 22:17 Last Admin: 09/22/24 23:06 Dose: 3 mcg/kg/min, 635.625 mls/hr Sodium Chloride (Ns) 1,000 mls @ 999 mls/hr IV .Q1H1M ONE Stop: 09/22/24 23:23 Last Admin: 09/22/24 22:30 Dose: 999 mls/hr Sodium Chloride (Ns) 1,000 mls @ 999 mls/hr IV .Q1H1M ONE Stop: 09/22/24 23:23 Last Admin: 09/22/24 23:00 Dose: 999 mls/hr Sodium Chloride (Ns) 1,000 mls @ 999 mls/hr IV .Q1H1M ONE Stop: 09/22/24 23:24 Last Admin: 09/23/24 03:14 Dose: Not Given Ceftriaxone Sodium/Dextrose (Rocephin/D5w 1gm Iv Premix) 50 mls @ 100 mls/hr IV X1 ONE Stop: 09/22/24 22:54 Last Admin: 09/23/24 00:30 Dose: 100 mls/hr Amiodarone HCl/Dextrose (Nexterone Ivpb) 150 mg in 100 mls @ 600 mls/hr IV .Q10M ONE Stop: 09/22/24 22:52 Last Admin: 09/23/24 03:14 Dose: Not Given Sodium Chloride (Ns) 1,000 mls @ 999 mls/hr IV .Q1H1M ONE Stop: 09/23/24 04:39 Last Admin: 09/23/24 03:47 Dose: 999 mls/hr Piperacillin/Tazobactam/Dextrose (Zosyn) 3.375 gm in 50 mls @ 100 mls/hr IV X1 ONE Stop: 09/23/24 04:59 Insulin Human Regular (Insulin Hum Regular 1 Unit/0.01 Ml (Per Unit)) 5 unit IV X1 ONE Stop: 09/23/24 04:02 Sodium Bicarbonate (Sodium Bicarb Inj 8.4% Syr 50 Ml Syringe) 50 ml IV X1 ONE Stop: 09/23/24 04:18 Last Admin: 09/23/24 04:23 Dose: 50 ml Sodium Bicarbonate (Sodium Bicarb Inj 8.4% Syr 50 Ml Syringe) 50 ml IV X1 ONE Stop: 09/23/24 04:18 Last Admin: 09/23/24 04:23 Dose: 50 ml Sodium Bicarbonate (Sodium Bicarb Inj 8.4% 1 Meq/Ml Vial 50 Ml) 100 meq IV X1 ONE Stop: 09/23/24 04:26 Assessment & Plan Plan Summary: 84 M admitted tot ICU due to post cardiac arrest care. Assessment and plan: [employer] SALESPERSON: #Acute encephalopathy Etiology concern for anoxic brain injury Possible down time >2hrs Pupil dilated and fixed Plan: -neuro checks -EEG Cardio: #Shock, undifferentiated #Postcardiac arrest Etiology of the cardiac arrest remain unknown, troponins were negative, CTA chest was negative for PE. Patient does take xanax and norco, has possible covid 2 weeks ago, possible concern for respiratory arrest Currently maxed on levo, yogesh, vaso, and epi Plan: -cont vasopressors: levo, vaso, yogesh, and epi -monitor lactate -echo, ordered -maintain map >65 and/or systolic >90 -TTM Pulm: #AHRF requiring mechanical ventilation Etiology unknown likely respiratory arrest Initial ABG showed a 7.1/53/131/18 CXR showed vascular congestion Plan: -AM cxr -serial ABG with vent changes GI: stable Renal: #SYLVAIN- likely prerenal #Anion gap metabolic acidosis- likely due to type 1 Lactic acidosis #Anuria Etiology of SYLVAIN likely hypoperfusion 2/2 to cardiac arrest, elevated LA likely causing a AGMA Last LA is 13.1 Patient has produced no urine since arrival, POCUS showed no urine in the bladder Plan: -monitor IOP, I/Os -avoid neph toxins -Bicarb drip due to acidosis Endo: #T2DM noninsuline dependent Plan: -Insulin sliding scale protocol -glucose goal 180-220 Heme: #leukocytosis- reactive likely from cardiac arrest #normocytic anemia- etiology unknown WBC 27.6 on admission post cardiac arrest Plan: -f/u CBC ID: #Aspiration PNA vs Pneumonitis- 2/2 to post intubation vs aspiratio CXR showed some consolidations Plan: -f/u bcx, sputum cx -borad spectrum abx: vanc x1, and zosyn (09/23- ) Skin/MSK: stable ICU Health maintenance: Mechanical ventilation: AC/VC Sedation: none FEN: hold DVT ppx: heparin sq GI ppx: protonix [place]: yes IV lines: 3 Central line: R subclavian Arterial line: none Code status: FULL code Dispo: admit to ICU post cardiac arrest - Patient's care was discussed with my attending physician, Dr. Rusty Enriquez MD Internal Medicine PGY-3 Attending Provider Attestation/Addendum I reviewed labs, imaging, EKG, home medications and prior available records. Face to face evaluation was performed by me. I have personally examined the patient and discussed assessment and plan with the IM team. I reviewed the resident note and agree with the plan with exceptions as below. 84-year-old male with history of hypertension who presented with a chief complaint of unresponsiveness. He was found to have cardiac arrest status post ROSC. Cardiac arrest status post ROSC: Etiology is unclear. Patient was found down for unknown period of time and he was in cardiac arrest at the time of starting CPR. He was in and out of multiple cardiac arrhythmias including ventricular fibrillation and PEA. Patient has fixed and dilated pupils with absence of brainstem reflexes. He is in shock requiring multiple vasopressors. CTA of the chest showed no acute PE. No previous history of CHF. Possible sepsis however source is unclear. Abdominal CT showed colitis picture however doubt leak causing cardiac arrest and the patient was reported as asymptomatic reading his book when he was last seen. Troponin is negative and EKG is not showing any acute NV changes. He has significant lab abnormalities however these are likely postarrest labs. Will start the patient on vancomycin/Zosyn and continue vasopressors. Temperature management. Shock: Likely cardiogenic postcardiac arrest versus septic. Continue vasopressors. Monitor vitals. Metabolic acidosis: In the setting of cardiac arrest. Continue bicarb drip. Follow-up BMP. Transaminitis: Likely shock liver in setting of cardiac arrest. Management as above. Trend LFTs. SYLVAIN: Likely intrinsic in the setting of shock and cardiac arrest. Continue IV fluids. Monitor kidney function. Avoid nephrotoxins. Renally dosed medications. Abnormal TSH: TSH is very elevated. Could be sick thyroid. Ordered free T4. Thrombocytopenia: Can be in setting of cardiac arrest and acute illness. No signs of active bleeding. Monitor CBC. Elevated D-dimer: Ordered CTA chest that showed no acute PE. Goals of care discussion/counseling: Given the likelihood of his brainstem and poor prognosis. He is currently full code however will benefit from further goals of care discussion if he codes again which is likely to happen. Critical care time is 60 minutes.
--- NOTE | 2024-09-23 06:06 | PC.NURSE ---
MD Enriquez unable to insert art-line at this time.
[2024-09-23] MEDS: INSULIN HUM REGULAR 1 UNIT/0.01 ML (PER UNIT) 5 UNIT IV (06:07)
[2024-09-23] MEDS: PIPER/TAZO 3.375 GM 3.375 GM/50 ML BAG IV (06:08)
--- NOTE | 2024-09-23 06:29 | PC.NURSE ---
Patient's o2 saturation 79%, manually bagging patient at this time.
[2024-09-23] MEDS: PHENYLEPHRINE HCL 40 MG in SODIUM CHLORIDE 0.9% 96 ML 84.75 MG IV (06:31)
[2024-09-23 06:58] LABS: Base Excess -14 (-3-3); HCO3 14 mEq/L (20-26); Inspired Oxygen, FIO2 100 %; O2 Saturation 88 % (91-98); PCO2 40 mmHg (32.0-48.0); PO2 61 mmHg (83-108)
[2024-09-23 07:00] LABS: Base Excess, Venous -15 (-3-3); O2 Saturation, Venous 80 % (96-97); PCO2, Venous 37 mmHg (36-56); PO2, Venous 55 mmHg (15-58); pH, Venous 7.15 (7.33-7.66)
[2024-09-23 07:01] LABS: Allen Test Performed/OK; Puncture Site Left Radial; pH, Arterial 7.15 (7.35-7.45)
[2024-09-23 07:02] LABS: Lactate (Lactic Acid) 13.1 mMol/L (0.4-2.0)
[2024-09-23 07:08] LABS: Basophils # (Auto) 0.1 Thou/mm3 (0.0-0.2); Basophils % (Auto) 0 % (0-2.5); Eosinophils % (Auto) 0 % (0-10); Hematocrit 33.8 % (41.0-53.0); Hemoglobin 10.6 g/dL (13.5-16.0); Immature Granulocytes % (Auto) 2 % (0-0); Immature Granulocytes Auto 0.54 Thou/mm3 (0.00-0.00); Lymphocytes # (Auto) 2.5 Thou/mm3 (1.0-4.8); Lymphocytes % (Auto) 9 % (10-50); Mean Corpuscular HGB Conc 31.4 g/dl (31.0-37.0); Mean Corpuscular Hemoglobin 31.3 pg (25.0-35.0); Mean Corpuscular Volume 100 fL (80-100); Monocytes # (Auto) 0.3 Thou/mm3 (0.0-0.8); Monocytes % (Auto) 1 % (0-12); Neutrophils # (Auto) 24.2 Thou/mm3 (1.8-7.7); Neutrophils % (Auto) 88 % (37-80); Nucleated Red Blood Cell # 0.02 Thou/mm3 (0.00-0.00); Nucleated Red Blood Cell % 0 /100 WBC (0); Platelet Count 133 Thou/mm3 (140-440); RDW Standard Deviation 51.1 fL (35.1-43.9); Red Blood Count 3.39 Miln/mm3 (4.50-5.90); White Blood Count 27.6 Thou/mm3 (3.8-10.6)
--- NOTE | 2024-09-23 07:26 | PD.RESEVENT ---
Documentation for date of: 09/23/24 Event Note Event Note: Discussed code status with patient's and decision-maker, Inez Bunn as well as daughter at the bedside. Discussed current course of treatment and poor prognosis. Patient had unknown downtime, current physical exam reveals no brainstem reflexes and fixed pupils, and multiple codes were performed already before arrival to obtain ROSC. They understood the critical condition patient is in, and would like to change code status from Full Code to DNR. Patient plan of care was discussed with the attending physician, Dr. Harris. Negrita Nelson, PGY-2
[2024-09-23 07:42] LABS: Alanine Aminotransferase 335 U/L (10-49); Albumin, Serum 2.5 gm/dL (3.4-4.8); Albumin/Globulin Ratio 1.5 (1.2-2.2); Alkaline Phosphatase 106 U/L (46-116); Anion Gap 22 (7-16); Aspartate Amino Transferase 397 U/L (0-34); BUN/Creatinine Ratio 18 Ratio (12-20); Bilirubin,Total 0.3 mg/dL (0.3-1.2); Blood Urea Nitrogen 43 mg/dL (9-23); Calcium (Corrected) 8.1 mg/dL (8.5-10.1); Chloride 105 mMol/L (98-107); Creatinine (Component) 2.4 mg/dL (0.6-1.3); Estimated Creatinine Clearance 26.5 mL/min (>60); Free T4 (Free Thyroxine) 0.91 ng/dL (0.89-1.76); Globulin 1.7 gm/dL (2.3-3.5); Magnesium 1.9 mg/dL (1.6-2.6); Osmolality,Calculated 309 (275-295); Phosphorous 5.5 mg/dL (2.4-5.1); Potassium 4.1 mMol/L (3.4-5.1); Sodium 139 mMol/L (136-145); Total Protein 4.2 gm/dL (5.7-8.2); eGFR 26 See Note
[2024-09-23] MEDS: Sodium Bicarb 8.4% 50ml Vial* 150 MEQ in DEXTROSE 5%-WATER 1,000 ML 100 MEQ IV (07:46)
[2024-09-23 07:47] LABS: Glucose 472 mg/dL (74-106)
[2024-09-23 07:48] LABS: Calcium 6.9 mg/dL (8.3-10.6); Carbon Dioxide 11.6 mMol/L (20.0-31.0)
[2024-09-23] MEDS: NOREPINEPHRINE INJ 32 MG in SODIUM CHLORIDE 0.9% 500 ML 468 ML 317.813 MG IV ×3 (08:00→11:49)
[2024-09-23] MEDS: PHENYLEPHRINE HCL IV ×2 (08:10→10:16)
[2024-09-23] MEDS: SODIUM CHLORIDE 0.9% IV ×3 (08:10→10:52)
[2024-09-23] MEDS: EPINEPHrine Inj 16 MG in SODIUM CHLORIDE 0.9% 250 ML 234 ML 203.813 MG IV ×2 (08:13→09:24)
[2024-09-23] MEDS: SCOPOLAMINE 1 MG TDSY TOP (08:37)
[2024-09-23] MEDS: PANTOPRAZOLE INJ 40 MG VIAL IVP (08:37)
--- NOTE | 2024-09-23 09:00 | PC.NURSE ---
per organ donation. pt not a candidate for organ donation. call back when cardiac occurs.
[2024-09-23 09:53] LABS: Reflex Lactate? Y
--- NOTE | 2024-09-23 10:34 | PC.SS ---
EDUCATIONAL TECHNOLOGIST called pt's son because pt's and listed medical decision maker did not answer. EDUCATIONAL TECHNOLOGIST spoke to son Denny Bunn [phone]. Son stated that pt lives with his at home and that before pt came to the hospital pt was able to complete all his ADL's and would even help his with her ADL's. Pt does not use any DME but is diabetic, and his pharmacy of choice is [facility] on [address]. Pt's PCP is Dr. Garcia, and pt see's a deposition reporter, and back doctor but son was not able to provide names of those doctors. Pt's son stated that he prefers that pt comes home but if SNF is needed there is no preference.
[2024-09-23] MEDS: EPINEPHRINE IV (10:52)
--- NOTE | 2024-09-23 13:15 | DES_ITS ---
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 Patient pronounced 1:10 pm, 09/23/[address] Harris. Additional Data Confirmation of : no pulse, no respirations, no heart sounds and pupils fixed and dilated Family: at bedside Attending/PCP notified?: Yes Attending physician: Stephen Harris MD Was code activated?: No Autopsy requested?: No credit union field examiner notified?: No Organ bank notified?: Yes Advance directives: No
--- NOTE | 2024-09-23 15:50 | DES_ITS ---
<Statement entered by Stephen Harris MD - 10/03/24 03:57> Patient seen and examined with the above resident, Negrita Nelson MD. I agree with the above documentation. Patient with significant neurologic injury post out of hospital cardiac arrest. I personally met with the family after my own assessment at bedside. We arranged the whole family to be permitted to receive an update on status as well as to ask any questions about care now. I did explain that the patient had severe neurological injury from anoxia and that he would not recover form this event given signs of brain already. Patient's body is being sustained on life support only. Patient were understanding and appreciative of care and update. They returned to me after adequate time to discuss among themselves and decided with transition to withdrawal of life support with comfort measures only. Patient off pressors and with discontinuation of mechanical ventilation. Patient with prompt cardiac arrest within minutes and family permitted to be with him in final moments. I personally confirmed exam with lack of CN reflexes, heart sounds/ pulses, or spontaneous breathing prior to announcement of . Family at bedside given condolences. Total critical care time: I personally spent 50 minutes for review of physiologic parameters, directing plan of care, and extensive counseling of patients family. This is exclusive of time spent teaching housestaff or performing any separate billable procedures. Documentation for date of: 09/23/24 Summary Date and Time Date of admission: 09/23/24 04:03 Summary Details: Patient was examined by 3 different physicians to evaluate neurologic status, including checking of the gag reflex, corneal reflex, pupillary reflex, and vestibulo-ocular reflex were all negative. Pupils were fixed and dilated, and patient was completely unresponsive to pain stimuli. Current treatment course, findings, events, and prognosis were fully discussed with [id number] and decision-maker, patient's Inez Bunn, as well as other family members. Attending behavioral assistant Dr. Harris as well as resident ICU team Dr. Negrita Nelson PGY-[address] Jeannette Paiz PGY-1 met with family who had all gathered at the hospital courtyard to discuss goals of care, and family had decided to transition the patient to comfort measures and withdraw life support. Patient was taken off of pressor support, and subsequently passed about 10 minutes later, surrounded by family. Hospital Course: Patient was an 84-year-old male with past medical history of hypertension, hyperlipidemia, type 2 diabetes, GERD, and BPH who was brought to the ED on 09/22/2024 due to cardiac arrest. According to , patient was reading sitting up in his bed, and 2 hours later patient's and home health nurse found him unresponsive with foam around his mouth. They called EMS and started CPR, and patient was intubated in the field. In the ED, patient was in PEA, then was able to get a shockable rhythm of ventricular tachycardia. ROSC was obtained after an unknown total down time. Patient was started on vasopressors. CT head and CT abdomen/pelvis were negative for any acute findings. Patient was stabilized and transferred to the ICU for post-cardiac arrest. 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
== END 2024-09-23 13:10 | disposition expired | DRG 297 ==
LOC: SERX 09-23 03:44 → SERHOLD 09-23 04:19 → S2SX 09-23 04:49
PROVIDERS: Student in an Organized Health Care Education/Training Program; Admitting Provider Student in an Organized Health Care Education/Training Program; Emergency Provider Emergency Medicine; PCP Family Medicine; Visit Provider Internal Medicine Critical Care Medicine
DX: I46.9 Cardiac arrest, cause unspecified (principal); E87.20 Acidosis, unspecified; G93.1 Anoxic brain damage, not elsewhere classified; N17.9 Acute kidney failure, unspecified; R57.9 Shock, unspecified; E78.5 Hyperlipidemia, unspecified; E11.9 Type 2 diabetes mellitus without complications; N40.0 Benign prostatic hyperplasia without lower urinary tract symptoms; K21.9 Gastro-esophageal reflux disease without esophagitis; I10 Essential (primary) hypertension; Z66 Do not resuscitate; D72.829 Elevated white blood cell count, unspecified; I47.20 Ventricular tachycardia, unspecified; Z51.5 Encounter for palliative care
CPT/HCPCS: 36415; 36600; 70450; 71275; 74177; 80053; 80307; 80320; 81001; 82140; 82150; 82550; 82803; 83605; 83690; 83735; 83880; 84100; 84132; 84145; 84439; 84443; 84484; 85025; 85379; 85610; 85652; 85730; 86140; 87040; 87081; 87086; 87400; 87634; 87811; 92950; 93005; 94002; 94003; 99291; A4649; C1751; J0171; J0696; J1265; J1720; J1815; J2371; J2470; J2543; J2598; J3371; J3490; J7030; J7040; J7050; J7060; J7070; Q9967; A9270; G0480; J3370